=== PATIENT | female | born 1940 | race Caucasian/White ===

== ENCOUNTER → 2016-09-01 | Outpatient (CLI) | payer MEDICARE ==
[~2016-09-01] MED LIST: ASPIRIN E.C.81 M1 PO; Aspirin E.C. PO; B COMPLETE1 EACH PO; CARDURA2 M1 PO; CIPROFLOXACIN500 M1 PO; CLOPIDOGREL75 MG PO; COMBIGAN O20 DROP/5 BOTH EYES; CYCLOBENZAPRINE5 MG PO; Cardura PO; Colace PO; DAILY VITAMIN1 EAC8 PO; DOCUSATE SODIU100 MG PO; DORZOLAMIDE HCL10 ML LEFT EYE; DOXAZOSIN MESYLA2 MG PO; Dulcolax PO; ENDOCET 5-3251 EACH PO; FOSINOPRIL SODI20 MG PO; IMDUR60 MG PO; ISORDIL,SORBITR20 MG PO; ISOSORBIDE MONO60 MG PO; Imdur PO; KEFLEX500 MG PO; KEPPRA500 MG PO; Keppra PO; LAMICTAL ODT100 MG PO; LAMOTRIGINE100 MG PO; LEVETIRACETAM500 MG PO; LEVOFLOXACIN250 MG PO; LOPRESSOR100 M1 PO; LOVENOX40 MG/0.4 SC; LOW DOSE ASPIRI81 M1 PO; LaMICtal PO; Lopressor PO; MEDROL DOSEPAK4 MG PO; MONOPRIL HCT1 TABLE1 PO; MONOPRIL20 MG PO; NEURONTIN100 MG PO; NIFEDICAL XL60 MG PO; NIFEDIPINE ER30 MG PO; OS-CAL 500+D T1 EAC1 PO; Oscal 500 w/Vitamin PO; PANTOPRAZOLE SO40 MG PO; PLAVIX75 MG PO; PROCARDIA XL60 MG PO; Plavix PO; Procardia XL,Adalat PO; SENNA-TIME S T1 EACH PO; SIMVASTATIN40 M1 PO; SIMVASTATIN40 MG PO; SPIRONOLACT/HC1 EACH PO; Senokot S,Pericolace PO; TOPROL XL100 MG PO; TYLENOL PM1 CAPLET PO; TYLENOL REGULA325 MG PO; Theragran PO; VITAMIN B-12250 MCG PO; VITAMIN B-6250 MG PO; Vigamox 0.5% Ophth S LEFT EYE; ZESTRIL,PRINIVI40 MG PO; ZOCOR40 MG PO
== END | disposition home or self-care (01) ==
LOC: CDC 11:43
DX: R94.31 Abnormal electrocardiogram [ECG] [EKG] (principal)
CPT/HCPCS: 93000

== ENCOUNTER 2016-09-04 13:54 | Inpatient (IN) | payer OTHER, MEDICARE ==
[~2016-09-04] VITALS: Ht 165.1 cm; Wt 62.9 kg
[2016-09-04 14:11] LABS: HEMATOCRIT 25.6 % (36.0-46.0); MCH 31.5 PG (29.0-34.0); MCHC 31.6 G/DL (30.0-36.0); MCV 99.6 FL (83-99); MEAN PLAT.VOLUME 9.3 uM^3 (9.5-12.4); PLATELET COUNT 196 K/uL (156-360); RBC DIS.WIDTH-CV 14.6 % (11.8-14.6); RBC DIS.WIDTH-SD 52.9 % (39-53); RED BLOOD COUNT 2.57 M/uL (3.80-5.20); WHITE BLOOD COUNT 5.1 K/uL (4.1-10.2)
[2016-09-04 14:20] LABS: CHLORIDE 110 mEq/L (99-109); POTASSIUM 3.6 mEq/L (3.7-5.4); SODIUM 141 mEq/L (136-147)
[2016-09-04 14:21] LABS: GLUCOSE 236 mg/dL (70-99)
[2016-09-04 14:23] LABS: ANION GAP 6 MEQ/L (2-14)
[2016-09-04 14:25] LABS: GFR ESTIMATE (CALCULATED) 39 mL/min/
[2016-09-04 14:26] LABS: UREA NITROGEN (BUN) 27 mg/dL (9-23)
[2016-09-04 14:36] VITALS: BP 112/52
[2016-09-04 14:43] VITALS: BP 109/49
[2016-09-04 14:45] VITALS: BP 109/49
[2016-09-04 16:56] LABS: MCH 31.6 PG (29.0-34.0); MCHC 33.5 G/DL (30.0-36.0); RBC DIS.WIDTH-CV 15.6 % (11.8-14.6); RBC DIS.WIDTH-SD 53.1 % (39-53); WHITE BLOOD COUNT 5.7 K/uL (4.1-10.2)
[2016-09-04 17:14] LABS: TROP-I INTERPRETATION NEGATIVE; TROPONIN-I < 0.01 ng/mL (0.0-0.30)
[2016-09-04 17:16] LABS: ANION GAP 7 MEQ/L (2-14); CHLORIDE 112 MEQ/L (99-109); GFR ESTIMATE (CALCULATED) 52 mL/min/; POTASSIUM 3.6 MEQ/L (3.7-5.4); SAMPLE HEMOLYSIS CHECK 0; SAMPLE ICTERIC CHECK 0; SAMPLE LIPEMIA CHECK 0; SODIUM 141 MEQ/L (136-147); UREA NITROGEN (BUN) 22 mg/dL (9-23)
[2016-09-04 17:22] LABS: GLUCOSE 120 mg/dL (70-99)
[2016-09-04 17:26] LABS: MEAN PLAT.VOLUME 9.1 uM^3 (9.5-12.4); PLAT.SUFFICIENCY DECREASED
[2016-09-04 17:49] LABS: MCV 94.1 FL (83-99); PLATELET COUNT 130 K/uL (156-360); RED BLOOD COUNT 3.93 M/uL (3.80-5.20)
[2016-09-04 19:40] VITALS: BP 99/39
[2016-09-04 22:00] VITALS: BP 109/39
[2016-09-04 22:19] LABS: METH RESISTANT S AUREUS PCR NEGATIVE (NEGATIVE)
[2016-09-04 22:32] LABS: PROBE CHECK PASS; SPECIMEN PROCESSING CONTROL PASS
[2016-09-05] VITALS (8 sets, daily range): BP systolic 99–143; BP diastolic 39–64
[2016-09-05 07:06] LABS: TROP-I INTERPRETATION NEGATIVE; TROPONIN-I < 0.01 ng/mL (0.0-0.30)
[2016-09-05 08:52] LABS: HEMATOCRIT 34.5 % (36.0-46.0); MCH 31.7 PG (29.0-34.0); MCHC 34.2 G/DL (30.0-36.0); MCV 92.7 FL (83-99); MEAN PLAT.VOLUME 9.4 uM^3 (9.5-12.4); PLATELET COUNT 136 K/uL (156-360); RBC DIS.WIDTH-CV 16.3 % (11.8-14.6); RBC DIS.WIDTH-SD 54.4 % (39-53); RED BLOOD COUNT 3.72 M/uL (3.80-5.20)
[2016-09-05 11:55] LABS: ANION GAP 9 MEQ/L (2-14); CHLORIDE 110 MEQ/L (99-109); SAMPLE HEMOLYSIS CHECK 0; SAMPLE ICTERIC CHECK 0; SAMPLE LIPEMIA CHECK 0; SODIUM 139 MEQ/L (136-147)
[2016-09-05 11:58] LABS: POTASSIUM 4.5 MEQ/L (3.7-5.4)
[2016-09-05 12:00] LABS: GFR ESTIMATE (CALCULATED) 52 mL/min/; UREA NITROGEN (BUN) 18 mg/dL (9-23)
[2016-09-05 12:03] LABS: GLUCOSE 80 mg/dL (70-99)
[2016-09-05] MEDS ORDERED: NEURONTIN300 MG PO (15:06)
[2016-09-05] MEDS ORDERED: CILOSTAZOL100 MG PO (15:06)
[2016-09-05] MEDS ORDERED: BENAZEPRIL-HCT1 EAC5 PO (15:07)
[2016-09-06] VITALS (7 sets, daily range): BP systolic 84–146; BP diastolic 39–50
[2016-09-06 07:11] LABS: BASOPHIL COUNT 0.1 K/uL (0-0.1); EOSINOPHIL (%) 0.1 % (0-5); HEMATOCRIT 35.4 % (36.0-46.0); IMMATURE GRANULOCYTE (%) 0.4 % (0.0-0.7); INSTRUMENT ABS NEUTROPHIL CT 5.8 K/uL; LYMPHOCYTE COUNT 1.3 K/uL (1.0-2.8); MCH 31.8 PG (29.0-34.0); MCHC 33.6 G/DL (30.0-36.0); MCV 94.7 FL (83-99); MEAN PLAT.VOLUME 9.8 uM^3 (9.5-12.4); MONOCYTE (%) 11.1 % (3-12); MONOCYTE COUNT 0.9 K/uL (0-0.8); NEUTROPHIL COUNT 5.8 K/uL (1.8-6.4); PLATELET COUNT 137 K/uL (156-360); RBC DIS.WIDTH-CV 16.1 % (11.8-14.6); RBC DIS.WIDTH-SD 55.6 % (39-53); RED BLOOD COUNT 3.74 M/uL (3.80-5.20)
[2016-09-07] VITALS (10 sets, daily range): BP systolic 96–145; BP diastolic 35–90
[2016-09-07 06:55] LABS: EOSINOPHIL (%) 0 % (0-5); HEMATOCRIT 31.5 % (36.0-46.0); IMMATURE GRANULOCYTE (%) 0.2 % (0.0-0.7); INSTRUMENT ABS NEUTROPHIL CT 4.2 K/uL; LYMPHOCYTE COUNT 1.5 K/uL (1.0-2.8); MCH 31.6 PG (29.0-34.0); MCHC 33.7 G/DL (30.0-36.0); MEAN PLAT.VOLUME 9.7 uM^3 (9.5-12.4); MONOCYTE (%) 12.7 % (3-12); MONOCYTE COUNT 0.8 K/uL (0-0.8); NEUTROPHIL (%) 64.1 % (45-76); NEUTROPHIL COUNT 4.2 K/uL (1.8-6.4); PLATELET COUNT 130 K/uL (156-360); RBC DIS.WIDTH-CV 15.2 % (11.8-14.6); RBC DIS.WIDTH-SD 52.5 % (39-53); RED BLOOD COUNT 3.35 M/uL (3.80-5.20); WHITE BLOOD COUNT 6.5 K/uL (4.1-10.2)
[2016-09-07 21:03] LABS: HEMATOCRIT 31.6 % (36.0-46.0); MCH 30.7 PG (29.0-34.0); MCHC 32.6 G/DL (30.0-36.0); MCV 94.3 FL (83-99); MEAN PLAT.VOLUME 9.6 uM^3 (9.5-12.4); PLATELET COUNT 122 K/uL (156-360); RBC DIS.WIDTH-SD 51.8 % (39-53); RED BLOOD COUNT 3.35 M/uL (3.80-5.20); WHITE BLOOD COUNT 7.8 K/uL (4.1-10.2)
[2016-09-07 21:10] LABS: CHLORIDE 104 mEq/L (99-109); POTASSIUM 3.7 mEq/L (3.7-5.4); SODIUM 139 mEq/L (136-147)
[2016-09-07 21:12] LABS: GLUCOSE 93 mg/dL (70-99)
[2016-09-07 21:13] LABS: ANION GAP 9 MEQ/L (2-14)
[2016-09-07 21:15] LABS: GFR ESTIMATE (CALCULATED) > 59 mL/min/
[2016-09-07 21:16] LABS: UREA NITROGEN (BUN) 15 mg/dL (9-23)
[2016-09-07 21:23] LABS: TROP-I INTERPRETATION NEGATIVE; TROPONIN-I < 0.01 ng/mL (0.0-0.30)
[2016-09-08] VITALS (11 sets, daily range): BP systolic 96–127; BP diastolic 36–61
[2016-09-08 05:27] LABS: CHLORIDE 104 mEq/L (99-109); POTASSIUM 4.2 mEq/L (3.7-5.4); SODIUM 138 mEq/L (136-147)
[2016-09-08 05:28] LABS: GLUCOSE 105 mg/dL (70-99)
[2016-09-08 05:30] LABS: ANION GAP 9 MEQ/L (2-14)
[2016-09-08 05:32] LABS: GFR ESTIMATE (CALCULATED) > 59 mL/min/
[2016-09-08 05:33] LABS: UREA NITROGEN (BUN) 17 mg/dL (9-23)
[2016-09-08 05:41] LABS: TROP-I INTERPRETATION NEGATIVE; TROPONIN-I 0.02 ng/mL (0.0-0.30)
[2016-09-08 06:03] LABS: HEMATOCRIT 30.4 % (36.0-46.0); MCH 31.3 PG (29.0-34.0); MCHC 32.9 G/DL (30.0-36.0); MEAN PLAT.VOLUME 9.9 uM^3 (9.5-12.4); PLATELET COUNT 133 K/uL (156-360); RBC DIS.WIDTH-CV 14.6 % (11.8-14.6); RBC DIS.WIDTH-SD 50.9 % (39-53); WHITE BLOOD COUNT 5.8 K/uL (4.1-10.2)
[2016-09-09 00:46] VITALS: BP 103/53
[2016-09-09 04:09] VITALS: BP 126/57
[2016-09-09 07:51] VITALS: BP 124/59
[2016-09-09 12:37] VITALS: BP 124/59
[2016-09-09 16:08] LABS: HEMATOCRIT 31.9 % (36.0-46.0); MCHC 33.2 G/DL (30.0-36.0); MCV 96.4 FL (83-99); MEAN PLAT.VOLUME 9.8 uM^3 (9.5-12.4); PLATELET COUNT 165 K/uL (156-360); RBC DIS.WIDTH-CV 15.1 % (11.8-14.6); RBC DIS.WIDTH-SD 53.1 % (39-53); RED BLOOD COUNT 3.31 M/uL (3.80-5.20); WHITE BLOOD COUNT 7.3 K/uL (4.1-10.2)
[2016-09-09 19:20] VITALS: BP 136/60
[2016-09-10 00:20] VITALS: BP 122/60
[2016-09-10 05:00] VITALS: BP 115/55
[2016-09-10 07:34] VITALS: BP 120/56
[2016-09-10 13:04] VITALS: BP 101/50
[2016-09-10 15:24] VITALS: BP 115/56
[2016-09-10 20:00] VITALS: BP 144/56
[2016-09-11] VITALS (7 sets, daily range): BP systolic 97–125; BP diastolic 52–59
[2016-09-11 06:17] LABS: TROP-I INTERPRETATION NEGATIVE; TROPONIN-I < 0.01 ng/mL (0.0-0.30)
[2016-09-11 06:54] LABS: ANION GAP 7 MEQ/L (2-14); CHLORIDE 100 MEQ/L (99-109); GFR ESTIMATE (CALCULATED) 47 mL/min/; GLUCOSE 87 mg/dL (70-99); POTASSIUM 3.6 MEQ/L (3.7-5.4); SAMPLE HEMOLYSIS CHECK 0; SAMPLE ICTERIC CHECK 0; SAMPLE LIPEMIA CHECK 0; SODIUM 141 MEQ/L (136-147); UREA NITROGEN (BUN) 21 mg/dL (9-23)
[2016-09-11] MEDS ORDERED: HYDROCODON-ACE1 EAC7 PO (17:01)
[2016-09-12 03:46] VITALS: BP 127/58
[2016-09-12 08:45] VITALS: BP 109/55
[2016-09-12 12:20] VITALS: BP 94/48
[2016-09-12] MEDS ORDERED: FURO20I IV (12:32)
[2016-09-12] MEDS ORDERED: LEVAQUIN750 MG PO (12:38)
== END 2016-09-12 15:01 | DRG 907 ==
LOC: EME → EDBD 13:54 → EME 16:02 → SDC 16:02 → 2SOUTH 16:25 → 4WEST 16:25 → 2SOUTH 16:25 → 4WEST 19:46 → 4EAST 09-08 07:23
PROVIDERS: Emergency Medicine; Internal Medicine Cardiovascular Disease; Physician Assistant Surgical; Surgery
DX: I97.42 Intraoperative hemorrhage and hematoma of a circulatory system organ or structure complicating other procedure (principal); I77.72 Dissection of iliac artery; D62 Acute posthemorrhagic anemia; J95.89 Other postprocedural complications and disorders of respiratory system, not elsewhere classified; R09.02 Hypoxemia; I11.0 Hypertensive heart disease with heart failure; I50.9 Heart failure, unspecified; I70.222 Atherosclerosis of native arteries of extremities with rest pain, left leg; I74.5 Embolism and thrombosis of iliac artery; I27.2 Other secondary pulmonary hypertension; I35.0 Nonrheumatic aortic (valve) stenosis; I70.1 Atherosclerosis of renal artery; I77.1 Stricture of artery; E78.5 Hyperlipidemia, unspecified; R94.31 Abnormal electrocardiogram [ECG] [EKG]; Z66 Do not resuscitate; Z51.5 Encounter for palliative care; Y92.531 Health care provider office as the place of occurrence of the external cause; Y84.2 Radiological procedure and radiotherapy as the cause of abnormal reaction of the patient, or of later complication, without mention of misadventure at the time of the procedure; I69.354 Hemiplegia and hemiparesis following cerebral infarction affecting left non-dominant side
CPT/HCPCS: 71020; 71275; 74174; 80048; 80048 91; 80053; 80061; 80069; 82570; 82607 GA; 82728 GA; 83605; 83880; 84145 90; 84156; 84443; 84484; 85025; 85025 91; 85027; 85610; 85730; 86900; 86901; 86920; 87641; 93000; 93005; 93306; 94799; 97530 GO; 97530 GP; 99281; 99285; C1757; C1768; J0690; J1170; J1644; J1650; J1940; J2270; J2405; J2543; J2720; J2765; J3010; J7030; J7050; J7120; P9016

== ENCOUNTER 2017-08-23 16:21 | Emergency (ER) | payer OTHER, MEDICARE ==
[~2017-08-23] VITALS: Ht 167.6 cm; Wt 64.0 kg
[~2017-08-23 16:21] MED LIST changes: +BENAZEPRIL-HCT1 EAC5 PO; +CILOSTAZOL100 MG PO; +FURO20I IV; +HYDROCODON-ACE1 EAC7 PO; +LEVAQUIN750 MG PO; +NEURONTIN300 MG PO
[2017-08-23 17:28] LABS: HEMATOCRIT 26.5 % (36.0-46.0); HEMOGLOBIN 8.7 G/DL (11.9-15.5); MCHC 32.8 G/DL (30.0-36.0); MCV 97.4 FL (83-99); PLATELET COUNT 224 K/uL (156-360); RBC DIS.WIDTH-CV 16.4 % (11.8-14.6); RBC DIS.WIDTH-SD 57.9 % (39-53); RED BLOOD COUNT 2.72 M/uL (3.80-5.20); WHITE BLOOD COUNT 7.6 K/uL (4.1-10.2)
[2017-08-23 17:37] LABS: CHLORIDE 103 mEq/L (99-109); POTASSIUM 4.1 mEq/L (3.7-5.4); SODIUM 137 mEq/L (136-147)
[2017-08-23 17:39] LABS: GLUCOSE 93 mg/dL (70-99)
[2017-08-23 17:43] LABS: CREATININE 1.8 mg/dL (0.6-1.3); GFR ESTIMATE (CALCULATED) 29 mL/min/
[2017-08-23 17:44] LABS: UREA NITROGEN (BUN) 27 mg/dL (9-23)
[2017-08-23 18:53] LABS: APPEARANCE CLOUDY ((CLEAR)); BILIRUBIN NEGATIVE; BLOOD NEGATIVE; COLOR YELLOW ((YELLOW)); GLUCOSE (STRIP) NEGATIVE; KETONES NEGATIVE; LEUKOCYTES TRACE; NITRITE NEGATIVE; PROTEIN (STRIP) NEGATIVE; SPECIFIC GRAVITY 1.014 (1.000-1.030); UROBILINOGEN 0.2 MG/DL (0.2-1.0)
[2017-08-23 19:28] LABS: BACTERIA RARE /HPF; EPITHELIAL CELLS 1+ /HPF; MUCUS TRACE /LPF; RED BLOOD CELLS 0-5 /HPF (0-5); UCUL ADDED? YES
[2017-08-23] MEDS ORDERED: PROAIR HFA8.5 GM IH (20:14)
[2017-08-23 21:06] VITALS: BP 135/69
== END 2017-08-23 21:09 | disposition home or self-care (01) ==
LOC: EME 16:21
PROVIDERS: Physician Assistant
DX: I95.9 Hypotension, unspecified (principal); J44.9 Chronic obstructive pulmonary disease, unspecified; E78.5 Hyperlipidemia, unspecified; I12.9 Hypertensive chronic kidney disease with stage 1 through stage 4 chronic kidney disease, or unspecified chronic kidney disease; N18.9 Chronic kidney disease, unspecified; I25.2 Old myocardial infarction; Z86.73 Personal history of transient ischemic attack (TIA), and cerebral infarction without residual deficits; Z79.82 Long term (current) use of aspirin
CPT/HCPCS: 71046; 80048; 81003; 83605; 85027; 87086; 93005; 94640; 99281; 99285; J7030

== ENCOUNTER 2017-09-02 18:01 | Inpatient (IN) | payer OTHER, MEDICARE ==
[~2017-09-02] VITALS: Ht 165.1 cm; Wt 59.9 kg
[~2017-09-02 18:01] MED LIST changes: -BENAZEPRIL-HCT1 EAC5 PO; -DAILY VITAMIN1 EAC8 PO; +DAILY VITE1 EAC1 PO; +LOTENSIN HCT1 TABLE1 PO; -NIFEDICAL XL60 MG PO; +NIFEDIPINE ER60 MG PO; +PROAIR HFA8.5 GM IH
[2017-09-02 19:32] LABS: HEMATOCRIT 29.5 % (36.0-46.0); HEMOGLOBIN 9.8 G/DL (11.9-15.5); MCHC 33.2 G/DL (30.0-36.0); MCV 96.4 FL (83-99); PLATELET COUNT 213 K/uL (156-360); RBC DIS.WIDTH-CV 15.7 % (11.8-14.6); RBC DIS.WIDTH-SD 55.5 % (39-53); RED BLOOD COUNT 3.06 M/uL (3.80-5.20); WHITE BLOOD COUNT 7.2 K/uL (4.1-10.2)
[2017-09-02 19:38] LABS: INTER. NORMALIZED RATIO 1.2
[2017-09-02 19:40] LABS: CHLORIDE 104 mEq/L (99-109); POTASSIUM 4.1 mEq/L (3.7-5.4); SODIUM 138 mEq/L (136-147)
[2017-09-02 19:41] LABS: GLUCOSE 94 mg/dL (70-99); PTT 29.5 SEC (25-37)
[2017-09-02 19:45] LABS: CREATININE 1.4 mg/dL (0.6-1.3); GFR ESTIMATE (CALCULATED) 39 mL/min/
[2017-09-02 19:46] LABS: UREA NITROGEN (BUN) 29 mg/dL (9-23)
[2017-09-03] VITALS (7 sets, daily range): BP systolic 117–178; BP diastolic 56–75
[2017-09-03] MEDS ORDERED: STIOLTO RESPIMAT4 GM IH (00:01)
[2017-09-03] MEDS ORDERED: VITAMIN D31000 UNIT PO (00:01)
[2017-09-03] MEDS ORDERED: SYNTHROID25 MCG PO (00:01)
[2017-09-03] MEDS ORDERED: K-DUR10 MEQ PO (00:01)
[2017-09-03 06:07] LABS: HEMATOCRIT 27.7 % (36.0-46.0); MCH 31.7 PG (29.0-34.0); MCHC 32.5 G/DL (30.0-36.0); MCV 97.5 FL (83-99); PLATELET COUNT 198 K/uL (156-360); RBC DIS.WIDTH-CV 15.4 % (11.8-14.6); RBC DIS.WIDTH-SD 54.8 % (39-53); RED BLOOD COUNT 2.84 M/uL (3.80-5.20); WHITE BLOOD COUNT 5.7 K/uL (4.1-10.2)
[2017-09-03 06:29] LABS: CHLORIDE 105 MEQ/L (99-109); CREATININE 1.1 MG/DL (0.6-1.3); GFR ESTIMATE (CALCULATED) 51 mL/min/; GLUCOSE 79 mg/dL (70-99); POTASSIUM 3.7 MEQ/L (3.7-5.4); SODIUM 138 MEQ/L (136-147); UREA NITROGEN (BUN) 25 mg/dL (9-23)
[2017-09-03 09:41] LABS: IRON 17 MCG/DL (35-150); TRANSFERRIN SATUR. 11 % (20-55)
[2017-09-03 10:13] LABS: FOLIC ACID (FOLATE) > 22.0 NG/ML (5.0-22.0)
[2017-09-03 19:28] LABS: HEMATOCRIT 32.4 % (36.0-46.0); HEMOGLOBIN 10.4 G/DL (11.9-15.5); MCH 31.4 PG (29.0-34.0); MCHC 32.1 G/DL (30.0-36.0); MCV 97.9 FL (83-99); PLATELET COUNT 205 K/uL (156-360); RBC DIS.WIDTH-CV 15.1 % (11.8-14.6); RBC DIS.WIDTH-SD 54.4 % (39-53); RED BLOOD COUNT 3.31 M/uL (3.80-5.20); WHITE BLOOD COUNT 8.3 K/uL (4.1-10.2)
[2017-09-03 19:48] LABS: TROP-I INTERPRETATION NEGATIVE; TROPONIN-I 0.02 ng/mL (0.0-0.30)
[2017-09-03 19:51] LABS: CHLORIDE 105 MEQ/L (99-109); CREATININE 1.1 MG/DL (0.6-1.3); GFR ESTIMATE (CALCULATED) 51 mL/min/; GLUCOSE 91 mg/dL (70-99); POTASSIUM 4.3 MEQ/L (3.7-5.4); SODIUM 138 MEQ/L (136-147); UREA NITROGEN (BUN) 22 mg/dL (9-23)
[2017-09-04] VITALS (16 sets, daily range): BP systolic 81–140; BP diastolic 41–63
[2017-09-04 05:11] LABS: HEMATOCRIT 26.4 % (36.0-46.0); HEMOGLOBIN 8.4 G/DL (11.9-15.5); MCV 98.5 FL (83-99)
[2017-09-04 05:18] LABS: TROP-I INTERPRETATION NEGATIVE; TROPONIN-I < 0.01 ng/mL (0.0-0.30)
[2017-09-04 05:26] LABS: CHLORIDE 107 MEQ/L (99-109); CREATININE 1.3 MG/DL (0.6-1.3); GFR ESTIMATE (CALCULATED) 42 mL/min/; GLUCOSE 105 mg/dL (70-99); POTASSIUM 4.5 MEQ/L (3.7-5.4); SODIUM 138 MEQ/L (136-147); UREA NITROGEN (BUN) 28 mg/dL (9-23)
[2017-09-04 07:51] LABS: HEMATOCRIT 27.2 % (36.0-46.0); MCH 30.5 PG (29.0-34.0); MCHC 30.9 G/DL (30.0-36.0); MCV 98.9 FL (83-99); PLATELET COUNT 180 K/uL (156-360); RBC DIS.WIDTH-CV 15.4 % (11.8-14.6); RBC DIS.WIDTH-SD 55.4 % (39-53); RED BLOOD COUNT 2.75 M/uL (3.80-5.20); WHITE BLOOD COUNT 8.3 K/uL (4.1-10.2)
[2017-09-04 07:53] LABS: HEMOGLOBIN 8.4 G/DL (11.9-15.5)
[2017-09-04 14:37] LABS: HEMATOCRIT 29.1 % (36.0-46.0); HEMOGLOBIN 9.2 G/DL (11.9-15.5); MCV 96.4 FL (83-99)
[2017-09-05] VITALS (7 sets, daily range): BP systolic 107–162; BP diastolic 55–70
[2017-09-05 05:16] LABS: BASOPHIL (%) 0.5 % (0-1); EOSINOPHIL (%) 0 % (0-5); HEMOGLOBIN 9.3 G/DL (11.9-15.5); IMMATURE GRANULOCYTE (%) 0.2 % (0.0-0.7); LYMPHOCYTE (%) 20.9 % (15-42); LYMPHOCYTE COUNT 1.4 K/uL (1.0-2.8); MCH 30.7 PG (29.0-34.0); MCHC 32.1 G/DL (30.0-36.0); MCV 95.7 FL (83-99); MONOCYTE (%) 9.8 % (3-12); MONOCYTE COUNT 0.7 K/uL (0-0.8); NEUTROPHIL (%) 68.6 % (45-76); NEUTROPHIL COUNT 4.6 K/uL (1.8-6.4); PLATELET COUNT 163 K/uL (156-360); RBC DIS.WIDTH-CV 15.5 % (11.8-14.6); RBC DIS.WIDTH-SD 54.8 % (39-53); RED BLOOD COUNT 3.03 M/uL (3.80-5.20); WHITE BLOOD COUNT 6.7 K/uL (4.1-10.2)
[2017-09-06 03:59] VITALS: BP 108/51
[2017-09-06 06:00] LABS: BASOPHIL (%) 0.6 % (0-1); EOSINOPHIL (%) 0 % (0-5); HEMATOCRIT 29.5 % (36.0-46.0); HEMOGLOBIN 9.4 G/DL (11.9-15.5); IMMATURE GRANULOCYTE (%) 0.2 % (0.0-0.7); LYMPHOCYTE (%) 25.3 % (15-42); LYMPHOCYTE COUNT 1.3 K/uL (1.0-2.8); MCH 30.2 PG (29.0-34.0); MCHC 31.9 G/DL (30.0-36.0); MCV 94.9 FL (83-99); MONOCYTE (%) 10.9 % (3-12); MONOCYTE COUNT 0.5 K/uL (0-0.8); NEUTROPHIL COUNT 3.1 K/uL (1.8-6.4); PLATELET COUNT 178 K/uL (156-360); RBC DIS.WIDTH-CV 14.9 % (11.8-14.6); RBC DIS.WIDTH-SD 52.4 % (39-53); RED BLOOD COUNT 3.11 M/uL (3.80-5.20)
[2017-09-06 06:34] LABS: CHLORIDE 106 MEQ/L (99-109); GLUCOSE 87 mg/dL (70-99); MAGNESIUM 1.6 mg/dl (1.3-2.7); SODIUM 137 MEQ/L (136-147); UREA NITROGEN (BUN) 16 mg/dL (9-23)
[2017-09-06 06:38] LABS: CREATININE 0.8 MG/DL (0.6-1.3); GFR ESTIMATE (CALCULATED) > 59 mL/min/
[2017-09-06 08:26] VITALS: BP 109/53
[2017-09-06 11:56] VITALS: BP 90/50
[2017-09-06] MEDS ORDERED: LOVENOX40 MG/0.4 SC (14:33)
[2017-09-06] MEDS ORDERED: FERROUS SULFAT325 MG PO (14:33)
[2017-09-06 16:45] VITALS: BP 119/56
== END 2017-09-06 18:17 | DRG 253 ==
LOC: EME 18:01 → 4EAST 09-03 01:13 → EDOF 09-03 01:13 → 2EAST 09-03 01:13 → ENRESERV 09-03 01:16 → 2EAST 09-03 02:16 → ENRESERV 09-03 19:33 → 4EAST 09-03 21:20 → ENPENDDIS 09-06 18:00 → 4EAST 09-06 18:17
PROVIDERS: Hospitalist; Internal Medicine; Physician Assistant; Surgery
PROC: 04CL0ZZ Extirpation of Matter from Left Femoral Artery, Open Approach (ICD-10-PCS; principal; 2017-09-03)
PROC: 30233N1 Transfusion of Nonautologous Red Blood Cells into Peripheral Vein, Percutaneous Approach (ICD-10-PCS; principal; 2017-09-03)
PROC: 04QL0ZZ Repair Left Femoral Artery, Open Approach (ICD-10-PCS; principal; 2017-09-03)
DX: I72.4 Aneurysm of artery of lower extremity (principal); D62 Acute posthemorrhagic anemia; I95.89 Other hypotension; G40.909 Epilepsy, unspecified, not intractable, without status epilepticus; J44.9 Chronic obstructive pulmonary disease, unspecified; I12.9 Hypertensive chronic kidney disease with stage 1 through stage 4 chronic kidney disease, or unspecified chronic kidney disease; N18.3 Chronic kidney disease, stage 3 (moderate); E78.5 Hyperlipidemia, unspecified; I35.0 Nonrheumatic aortic (valve) stenosis; I69.354 Hemiplegia and hemiparesis following cerebral infarction affecting left non-dominant side; H40.9 Unspecified glaucoma; I25.2 Old myocardial infarction; Z79.02 Long term (current) use of antithrombotics/antiplatelets; Z79.82 Long term (current) use of aspirin; Z99.3 Dependence on wheelchair
CPT/HCPCS: 71045; 72170; 73552; 80048; 80048 91; 82607; 82746; 83540; 83735; 84466; 84484; 85014; 85018; 85025; 85027; 85610; 85730; 86850; 86900; 86901; 86920; 93005; 93926; 93971; 94640; 94640 76; 94799; 97530 GP; 99281; 99285; C1757; J0330; J0690; J1100; J1644; J1650; J2405; J2720; J2765; J3010; J7030; P9016; S0020

== ENCOUNTER 2017-09-14 10:42 | Inpatient (IN) | payer OTHER, MEDICARE ==
[~2017-09-14] VITALS: Ht 162.6 cm; Wt 64.5 kg
[~2017-09-14 10:42] MED LIST changes: +FERROUS SULFAT325 MG PO; +K-DUR10 MEQ PO; +STIOLTO RESPIMAT4 GM IH; +SYNTHROID25 MCG PO; +VITAMIN D31000 UNIT PO
[2017-09-14 11:20] LABS: BASOPHIL (%) 0.7 % (0-1); EOSINOPHIL (%) 0 % (0-5); HEMATOCRIT 33.7 % (36.0-46.0); HEMOGLOBIN 10.9 G/DL (11.9-15.5); IMMATURE GRANULOCYTE (%) 0.3 % (0.0-0.7); LYMPHOCYTE (%) 27.9 % (15-42); LYMPHOCYTE COUNT 1.7 K/uL (1.0-2.8); MCH 30.9 PG (29.0-34.0); MCHC 32.3 G/DL (30.0-36.0); MCV 95.5 FL (83-99); MONOCYTE (%) 7.5 % (3-12); MONOCYTE COUNT 0.5 K/uL (0-0.8); NEUTROPHIL (%) 63.6 % (45-76); NEUTROPHIL COUNT 3.8 K/uL (1.8-6.4); RBC DIS.WIDTH-CV 14.9 % (11.8-14.6); RBC DIS.WIDTH-SD 50.8 % (39-53); RED BLOOD COUNT 3.53 M/uL (3.80-5.20)
[2017-09-14 11:25] LABS: PLATELET COUNT 349 K/uL (156-360)
[2017-09-14 11:28] LABS: INTER. NORMALIZED RATIO 1.1
[2017-09-14 11:29] LABS: CHLORIDE 105 mEq/L (99-109); POTASSIUM 4.2 mEq/L (3.7-5.4); SODIUM 142 mEq/L (136-147)
[2017-09-14 11:30] LABS: GLUCOSE 134 mg/dL (70-99)
[2017-09-14 11:31] LABS: PTT 32.5 SEC (25-37)
[2017-09-14 11:34] LABS: CREATININE 0.9 mg/dL (0.6-1.3); GFR ESTIMATE (CALCULATED) > 59 mL/min/
[2017-09-14 11:35] LABS: UREA NITROGEN (BUN) 14 mg/dL (9-23)
[2017-09-14] MEDS ORDERED: EAR WAX DROPS15 ML RIGHT EAR (14:43)
[2017-09-14] MEDS ORDERED: TYLENOL EXTRA500 MG PO (14:45)
[2017-09-14 19:59] LABS: CHLORIDE 105 MEQ/L (99-109); CREATININE 0.8 MG/DL (0.6-1.3); GFR ESTIMATE (CALCULATED) > 59 mL/min/; GLUCOSE 124 mg/dL (70-99); POTASSIUM 4.5 MEQ/L (3.7-5.4); SODIUM 140 MEQ/L (136-147); UREA NITROGEN (BUN) 15 mg/dL (9-23)
[2017-09-14 20:00] LABS: HEMATOCRIT 30.6 % (36.0-46.0); HEMOGLOBIN 9.7 G/DL (11.9-15.5); MCHC 31.7 G/DL (30.0-36.0); MCV 97.8 FL (83-99); PLATELET COUNT 337 K/uL (156-360); RBC DIS.WIDTH-CV 15.2 % (11.8-14.6); RBC DIS.WIDTH-SD 53.6 % (39-53); RED BLOOD COUNT 3.13 M/uL (3.80-5.20); TROP-I INTERPRETATION NEGATIVE; TROPONIN-I 0.02 ng/mL (0.0-0.30); WHITE BLOOD COUNT 16.3 K/uL (4.1-10.2)
[2017-09-14 20:50] VITALS: BP 170/72
[2017-09-14 23:31] VITALS: BP 152/66
[2017-09-15 03:00] VITALS: BP 119/76
[2017-09-15 06:34] LABS: HEMATOCRIT 25.2 % (36.0-46.0); HEMOGLOBIN 7.8 G/DL (11.9-15.5); MCH 30.5 PG (29.0-34.0); MCV 98.4 FL (83-99); PLATELET COUNT 319 K/uL (156-360); RBC DIS.WIDTH-CV 15.1 % (11.8-14.6); RBC DIS.WIDTH-SD 53.3 % (39-53); RED BLOOD COUNT 2.56 M/uL (3.80-5.20); WHITE BLOOD COUNT 8.8 K/uL (4.1-10.2)
[2017-09-15 06:58] LABS: TROP-I INTERPRETATION NEGATIVE; TROPONIN-I < 0.01 ng/mL (0.0-0.30)
[2017-09-15 07:00] LABS: CHLORIDE 105 MEQ/L (99-109); CREATININE 0.9 MG/DL (0.6-1.3); GFR ESTIMATE (CALCULATED) > 59 mL/min/; GLUCOSE 105 mg/dL (70-99); POTASSIUM 4.9 MEQ/L (3.7-5.4); SODIUM 140 MEQ/L (136-147); UREA NITROGEN (BUN) 19 mg/dL (9-23)
[2017-09-15 07:28] VITALS: BP 108/54
[2017-09-15 12:44] VITALS: BP 104/50
[2017-09-15 16:58] VITALS: BP 108/60
[2017-09-15 21:00] VITALS: BP 161/79
[2017-09-16] VITALS (12 sets, daily range): BP systolic 104–155; BP diastolic 51–74
[2017-09-16 05:15] LABS: HEMATOCRIT 20.3 % (36.0-46.0); HEMOGLOBIN 6.2 G/DL (11.9-15.5); MCH 30.1 PG (29.0-34.0); MCHC 30.5 G/DL (30.0-36.0); MCV 98.5 FL (83-99); PLATELET COUNT 278 K/uL (156-360); RBC DIS.WIDTH-CV 15.4 % (11.8-14.6); RED BLOOD COUNT 2.06 M/uL (3.80-5.20); WHITE BLOOD COUNT 8.2 K/uL (4.1-10.2)
[2017-09-17 04:00] VITALS: BP 119/54
[2017-09-17 07:15] VITALS: BP 125/58
[2017-09-17 08:37] LABS: BASOPHIL (%) 0.5 % (0-1); EOSINOPHIL (%) 0 % (0-5); HEMATOCRIT 25.6 % (36.0-46.0); IMMATURE GRANULOCYTE (%) 0.4 % (0.0-0.7); LYMPHOCYTE (%) 20.8 % (15-42); LYMPHOCYTE COUNT 1.7 K/uL (1.0-2.8); MCHC 32.4 G/DL (30.0-36.0); MCV 95.5 FL (83-99); MONOCYTE (%) 7.4 % (3-12); MONOCYTE COUNT 0.6 K/uL (0-0.8); NEUTROPHIL (%) 70.9 % (45-76); NEUTROPHIL COUNT 5.9 K/uL (1.8-6.4); PLATELET COUNT 268 K/uL (156-360); RBC DIS.WIDTH-CV 15.1 % (11.8-14.6); RBC DIS.WIDTH-SD 51.8 % (39-53); WHITE BLOOD COUNT 8.3 K/uL (4.1-10.2)
[2017-09-17 08:39] LABS: HEMOGLOBIN 8.3 G/DL (11.9-15.5); RED BLOOD COUNT 2.68 M/uL (3.80-5.20)
[2017-09-17] MEDS ORDERED: ENDOCET 5-3251 EACH PO (10:24)
[2017-09-17 10:49] LABS: APPEARANCE CLEAR ((CLEAR)); BILIRUBIN NEGATIVE; BLOOD NEGATIVE; COLOR YELLOW ((YELLOW)); GLUCOSE (STRIP) NEGATIVE; KETONES NEGATIVE; LEUKOCYTES NEGATIVE; NITRITE NEGATIVE; PROTEIN (STRIP) NEGATIVE; UROBILINOGEN 0.2 MG/DL (0.2-1.0)
[2017-09-17 12:38] VITALS: BP 112/52
[2017-09-17 15:43] VITALS: BP 127/60
[2017-09-17 19:00] VITALS: BP 161/67
[2017-09-17 22:30] VITALS: BP 121/56
[2017-09-18 03:20] VITALS: BP 108/53
[2017-09-18 05:56] LABS: HEMATOCRIT 26.8 % (36.0-46.0); HEMOGLOBIN 8.5 G/DL (11.9-15.5); MCH 30.5 PG (29.0-34.0); MCHC 31.7 G/DL (30.0-36.0); MCV 96.1 FL (83-99); PLATELET COUNT 244 K/uL (156-360); RBC DIS.WIDTH-CV 14.7 % (11.8-14.6); RBC DIS.WIDTH-SD 51.2 % (39-53); RED BLOOD COUNT 2.79 M/uL (3.80-5.20); WHITE BLOOD COUNT 8.5 K/uL (4.1-10.2)
[2017-09-18 06:20] LABS: CHLORIDE 102 MEQ/L (99-109); CREATININE 0.8 MG/DL (0.6-1.3); GFR ESTIMATE (CALCULATED) > 59 mL/min/; GLUCOSE 92 mg/dL (70-99); SODIUM 136 MEQ/L (136-147); UREA NITROGEN (BUN) 13 mg/dL (9-23)
[2017-09-18 08:04] VITALS: BP 115/51
[2017-09-18 12:13] VITALS: BP 109/53
[2017-09-18 20:00] VITALS: BP 117/58
[2017-09-19] VITALS (8 sets, daily range): BP systolic 99–134; BP diastolic 49–77
[2017-09-20 04:00] VITALS: BP 123/58
[2017-09-20 08:16] VITALS: BP 104/55
[2017-09-20 09:58] LABS: HEMATOCRIT 23.7 % (36.0-46.0); HEMOGLOBIN 7.8 G/DL (11.9-15.5); MCH 31.3 PG (29.0-34.0); MCHC 32.9 G/DL (30.0-36.0); MCV 95.2 FL (83-99); PLATELET COUNT 225 K/uL (156-360); RBC DIS.WIDTH-CV 14.7 % (11.8-14.6); RBC DIS.WIDTH-SD 50.7 % (39-53); RED BLOOD COUNT 2.49 M/uL (3.80-5.20); WHITE BLOOD COUNT 5.9 K/uL (4.1-10.2)
[2017-09-20 10:09] LABS: CHLORIDE 102 MEQ/L (99-109); CREATININE 0.8 MG/DL (0.6-1.3); GFR ESTIMATE (CALCULATED) > 59 mL/min/; GLUCOSE 108 mg/dL (70-99); POTASSIUM 4.2 MEQ/L (3.7-5.4); SODIUM 135 MEQ/L (136-147); UREA NITROGEN (BUN) 11 mg/dL (9-23)
[2017-09-20 12:13] VITALS: BP 126/60
[2017-09-20 16:03] VITALS: BP 105/50
[2017-09-20 19:56] VITALS: BP 128/60
[2017-09-20 23:39] VITALS: BP 140/63
[2017-09-21] VITALS (7 sets, daily range): BP systolic 113–132; BP diastolic 55–63
[2017-09-22 04:10] VITALS: BP 109/54
[2017-09-22 07:57] VITALS: BP 131/61
[2017-09-22 10:17] LABS: HEMATOCRIT 24.5 % (36.0-46.0); HEMOGLOBIN 7.9 G/DL (11.9-15.5); MCH 31.1 PG (29.0-34.0); MCHC 32.2 G/DL (30.0-36.0); MCV 96.5 FL (83-99); PLATELET COUNT 255 K/uL (156-360); RBC DIS.WIDTH-CV 14.9 % (11.8-14.6); RBC DIS.WIDTH-SD 51.6 % (39-53); RED BLOOD COUNT 2.54 M/uL (3.80-5.20); WHITE BLOOD COUNT 5.4 K/uL (4.1-10.2)
[2017-09-22 10:45] LABS: CHLORIDE 105 MEQ/L (99-109); POTASSIUM 3.8 MEQ/L (3.7-5.4); SODIUM 139 MEQ/L (136-147)
[2017-09-22 10:50] LABS: CREATININE 0.7 MG/DL (0.6-1.3); GFR ESTIMATE (CALCULATED) > 59 mL/min/; GLUCOSE 98 mg/dL (70-99); UREA NITROGEN (BUN) 12 mg/dL (9-23)
[2017-09-22 11:45] VITALS: BP 108/53
[2017-09-22 16:00] VITALS: BP 133/60
[2017-09-22 20:43] VITALS: BP 145/64
[2017-09-22 23:49] VITALS: BP 138/65
[2017-09-23 04:05] VITALS: BP 123/59
[2017-09-23 08:27] VITALS: BP 123/59
[2017-09-23 11:28] VITALS: BP 135/63
[2017-09-23 11:45] LABS: BASOPHIL (%) 0.7 % (0-1); EOSINOPHIL (%) 0 % (0-5); HEMATOCRIT 27.6 % (36.0-46.0); HEMOGLOBIN 8.5 G/DL (11.9-15.5); IMMATURE GRANULOCYTE (%) 0.2 % (0.0-0.7); LYMPHOCYTE (%) 24.1 % (15-42); LYMPHOCYTE COUNT 1.5 K/uL (1.0-2.8); MCH 29.8 PG (29.0-34.0); MCHC 30.8 G/DL (30.0-36.0); MCV 96.8 FL (83-99); MONOCYTE (%) 9.6 % (3-12); MONOCYTE COUNT 0.6 K/uL (0-0.8); NEUTROPHIL (%) 65.4 % (45-76); PLATELET COUNT 280 K/uL (156-360); RBC DIS.WIDTH-CV 15.2 % (11.8-14.6); RBC DIS.WIDTH-SD 51.9 % (39-53); RED BLOOD COUNT 2.85 M/uL (3.80-5.20); WHITE BLOOD COUNT 6.1 K/uL (4.1-10.2)
[2017-09-23 15:56] VITALS: BP 125/58
[2017-09-23 20:21] VITALS: BP 135/64
[2017-09-24] VITALS (7 sets, daily range): BP systolic 105–150; BP diastolic 52–70
[2017-09-25 00:15] VITALS: BP 140/67
[2017-09-25 04:28] VITALS: BP 135/65
[2017-09-25 07:31] VITALS: BP 119/53
[2017-09-25 11:26] VITALS: BP 142/64
[2017-09-25 15:41] VITALS: BP 141/65
[2017-09-25 19:24] VITALS: BP 119/64
[2017-09-26] VITALS (7 sets, daily range): BP systolic 123–171; BP diastolic 62–100
[2017-09-27 04:40] VITALS: BP 147/67
[2017-09-27 08:17] VITALS: BP 155/70
[2017-09-27 10:04] LABS: HEMATOCRIT 30.8 % (36.0-46.0); HEMOGLOBIN 9.5 G/DL (11.9-15.5); MCHC 30.8 G/DL (30.0-36.0); MCV 97.2 FL (83-99); PLATELET COUNT 396 K/uL (156-360); RBC DIS.WIDTH-SD 55.1 % (39-53); RED BLOOD COUNT 3.17 M/uL (3.80-5.20)
[2017-09-27 10:24] LABS: CHLORIDE 107 MEQ/L (99-109); CREATININE 0.8 MG/DL (0.6-1.3); GFR ESTIMATE (CALCULATED) > 59 mL/min/; GLUCOSE 112 mg/dL (70-99); POTASSIUM 3.3 MEQ/L (3.7-5.4); SODIUM 143 MEQ/L (136-147); UREA NITROGEN (BUN) 17 mg/dL (9-23)
[2017-09-27 11:52] VITALS: BP 150/64
[2017-09-27 16:00] VITALS: BP 160/62
[2017-09-27 20:41] VITALS: BP 164/70
[2017-09-27 23:28] VITALS: BP 160/65
[2017-09-28 04:41] VITALS: BP 160/70
[2017-09-28 08:26] VITALS: BP 176/75
[2017-09-28] MEDS ORDERED: TRAMADOL HCL50 MG PO (11:10)
[2017-09-28] MEDS ORDERED: LEVAQUIN500 MG PO (11:12)
[2017-09-28] MEDS ORDERED: PREDNISONE10 MG PO (11:13)
[2017-09-28 12:14] VITALS: BP 166/74
== END 2017-09-28 15:31 | DRG 252 ==
LOC: EME 10:42 → SDC 16:40 → 4EAST 18:46 → 2SOUTH 18:46 → ENRESERV 18:50 → 4EAST 20:46 → ENRESERV 09-19 13:07 → 3EAST 09-19 16:05
PROVIDERS: Emergency Medicine; Physician Assistant Surgical; Surgery
DX: T82.392A Other mechanical complication of femoral arterial graft (bypass), initial encounter (principal); I97.618 Postprocedural hemorrhage of a circulatory system organ or structure following other circulatory system procedure; Y83.2 Surgical operation with anastomosis, bypass or graft as the cause of abnormal reaction of the patient, or of later complication, without mention of misadventure at the time of the procedure; D62 Acute posthemorrhagic anemia; J44.0 Chronic obstructive pulmonary disease with (acute) lower respiratory infection; J18.9 Pneumonia, unspecified organism; Y95 Nosocomial condition; J44.1 Chronic obstructive pulmonary disease with (acute) exacerbation; I89.8 Other specified noninfective disorders of lymphatic vessels and lymph nodes; G40.909 Epilepsy, unspecified, not intractable, without status epilepticus; I12.9 Hypertensive chronic kidney disease with stage 1 through stage 4 chronic kidney disease, or unspecified chronic kidney disease; N18.9 Chronic kidney disease, unspecified; E78.5 Hyperlipidemia, unspecified; I35.0 Nonrheumatic aortic (valve) stenosis; I73.9 Peripheral vascular disease, unspecified; I69.354 Hemiplegia and hemiparesis following cerebral infarction affecting left non-dominant side; I25.2 Old myocardial infarction; Z87.891 Personal history of nicotine dependence; Z79.82 Long term (current) use of aspirin; Z79.02 Long term (current) use of antithrombotics/antiplatelets
CPT/HCPCS: 71046; 80048; 80048 91; 81003; 84484; 85025; 85027; 85610; 85730; 86850; 86900; 86901; 86920; 87070; 87205; 93005; 93971; 94010; 94640; 94640 76; 94667; 94668; 94760; 94799; 97530 GO; 97530 GP; 99202; 99281; 99285; C1757; J0690; J1170; J1644; J1650; J2405; J2543; J2720; J2765; J3010; J7050; J7120; J7512; P9016; Q0169

== ENCOUNTER 2017-11-20 18:34 | Inpatient (IN) | payer OTHER, MEDICARE ==
[~2017-11-20] VITALS: Ht 162.6 cm; Wt 60.5 kg
[~2017-11-20 18:34] MED LIST changes: +EAR WAX DROPS15 ML RIGHT EAR; +LEVAQUIN500 MG PO; +LOPRESSOR50 MG PO; +PREDNISONE10 MG PO; +TRAMADOL HCL50 MG PO; +TYLENOL EXTRA500 MG PO
[2017-11-20 19:13] LABS: HEMATOCRIT 28.9 % (36.0-46.0); HEMOGLOBIN 9.8 G/DL (11.9-15.5); MCH 30.2 PG (29.0-34.0); MCHC 33.9 G/DL (30.0-36.0); MCV 88.9 FL (83-99); PLATELET COUNT 151 K/uL (156-360); RBC DIS.WIDTH-CV 15.4 % (11.8-14.6); RBC DIS.WIDTH-SD 50.1 % (39-53); RED BLOOD COUNT 3.25 M/uL (3.80-5.20); WHITE BLOOD COUNT 10.3 K/uL (4.1-10.2)
[2017-11-20 19:22] LABS: CHLORIDE 97 mEq/L (99-109); SODIUM 130 mEq/L (136-147)
[2017-11-20 19:24] LABS: GLUCOSE 109 mg/dL (70-99)
[2017-11-20 19:27] LABS: CREATININE 1.1 mg/dL (0.6-1.3); GFR ESTIMATE (CALCULATED) 51 mL/min/
[2017-11-20 19:28] LABS: UREA NITROGEN (BUN) 24 mg/dL (9-23)
[2017-11-20] MEDS ORDERED: NIFEDIPINE ER60 MG PO (19:43)
[2017-11-20 19:51] LABS: TROP-I INTERPRETATION NEGATIVE; TROPONIN-I 0.09 ng/mL (0.0-0.30)
[2017-11-20 20:28] LABS: BASOPHIL (%) 0.3 % (0-1); EOSINOPHIL (%) 0 % (0-5); IMMATURE GRANULOCYTE (%) 0.4 % (0.0-0.7); LYMPHOCYTE (%) 12.2 % (15-42); LYMPHOCYTE COUNT 1.2 K/uL (1.0-2.8); MONOCYTE (%) 5.6 % (3-12); MONOCYTE COUNT 0.6 K/uL (0-0.8); NEUTROPHIL (%) 81.5 % (45-76); NEUTROPHIL COUNT 8.3 K/uL (1.8-6.4)
[2017-11-20 20:30] LABS: ALBUMIN 3.2 g/dL (3.2-4.8)
[2017-11-20 20:33] LABS: TOTAL PROTEIN 7.3 g/dL (6.4-8.3)
[2017-11-20 20:35] LABS: TOTAL BILIRUBIN 0.7 mg/dL (0.0-1.0)
[2017-11-20 20:36] LABS: ALKALINE PHOSPHATASE 78 IU/L (3-129)
[2017-11-20 20:38] LABS: AST (GOT) 33 IU/L (2-34); DIRECT BILIRUBIN 0.4 mg/dL (0.0-0.3)
[2017-11-20 20:39] LABS: ALT (GPT) 17 IU/L (3-49); LIPASE 17 U/L (1.0-51.0)
[2017-11-20 21:37] LABS: APPEARANCE CLEAR ((CLEAR)); BILIRUBIN NEGATIVE; BLOOD SMALL; COLOR YELLOW ((YELLOW)); GLUCOSE (STRIP) NEGATIVE; KETONES 5; LEUKOCYTES NEGATIVE; NITRITE NEGATIVE; PROTEIN (STRIP) 30; SPECIFIC GRAVITY 1.016 (1.000-1.030)
[2017-11-20 21:42] LABS: BACTERIA NONE SEEN /HPF; EPITHELIAL CELLS RARE /HPF; HYALINE CASTS 0-5 /LPF; MUCUS TRACE /LPF; UCUL ADDED? NO; WHITE BLOOD CELLS 0-5 /HPF (0-5)
[2017-11-20] MEDS ORDERED: IMDUR60 MG PO (23:23)
[2017-11-20] MEDS ORDERED: PROAIR HFA8.5 GM IH (23:24)
[2017-11-20] MEDS ORDERED: K-DUR10 MEQ PO (23:24)
[2017-11-20] MEDS ORDERED: BENAZEPRIL-HCT1 EAC5 PO (23:24)
[2017-11-21 04:34] LABS: TROP-I INTERPRETATION NEGATIVE; TROPONIN-I 0.06 ng/mL (0.0-0.30)
[2017-11-21 04:47] VITALS: BP 140/66
[2017-11-21 07:22] VITALS: BP 162/70
[2017-11-21 09:38] LABS: HEMATOCRIT 26.1 % (36.0-46.0); HEMOGLOBIN 8.7 G/DL (11.9-15.5); MCH 29.6 PG (29.0-34.0); MCHC 33.3 G/DL (30.0-36.0); MCV 88.8 FL (83-99); PLATELET COUNT 144 K/uL (156-360); RBC DIS.WIDTH-CV 15.2 % (11.8-14.6); RBC DIS.WIDTH-SD 49.5 % (39-53); RED BLOOD COUNT 2.94 M/uL (3.80-5.20); WHITE BLOOD COUNT 8.8 K/uL (4.1-10.2)
[2017-11-21 10:02] LABS: CHLORIDE 100 MEQ/L (99-109); CREATININE 0.9 MG/DL (0.6-1.3); GFR ESTIMATE (CALCULATED) > 59 mL/min/; GLUCOSE 92 mg/dL (70-99); POTASSIUM 3.6 MEQ/L (3.7-5.4); SODIUM 131 MEQ/L (136-147); UREA NITROGEN (BUN) 18 mg/dL (9-23)
[2017-11-21 10:32] VITALS: BP 135/64
[2017-11-21 16:18] VITALS: BP 158/74
[2017-11-22 00:10] VITALS: BP 93/50
[2017-11-22 06:50] VITALS: BP 107/53
[2017-11-22 08:07] LABS: BASOPHIL (%) 0.5 % (0-1); EOSINOPHIL (%) 0 % (0-5); HEMATOCRIT 32.5 % (36.0-46.0); HEMOGLOBIN 10.8 G/DL (11.9-15.5); IMMATURE GRANULOCYTE (%) 0.6 % (0.0-0.7); LYMPHOCYTE COUNT 0.9 K/uL (1.0-2.8); MCH 29.8 PG (29.0-34.0); MCHC 33.2 G/DL (30.0-36.0); MCV 89.8 FL (83-99); MONOCYTE COUNT 0.3 K/uL (0-0.8); NEUTROPHIL (%) 84.9 % (45-76); NEUTROPHIL COUNT 7.2 K/uL (1.8-6.4); PLATELET COUNT 133 K/uL (156-360); RBC DIS.WIDTH-CV 15.4 % (11.8-14.6); RBC DIS.WIDTH-SD 50.9 % (39-53); RED BLOOD COUNT 3.62 M/uL (3.80-5.20); WHITE BLOOD COUNT 8.5 K/uL (4.1-10.2)
[2017-11-22 08:19] LABS: ALBUMIN 2.7 g/dL (3.2-4.8)
[2017-11-22 08:20] LABS: POTASSIUM 3.6 mEq/L (3.7-5.4); SODIUM 137 mEq/L (136-147)
[2017-11-22 08:21] LABS: CHLORIDE 108 mEq/L (99-109)
[2017-11-22 08:22] LABS: GLUCOSE 83 mg/dL (70-99); TOTAL PROTEIN 6.3 g/dL (6.4-8.3)
[2017-11-22 08:25] LABS: ALKALINE PHOSPHATASE 68 IU/L (3-129); TOTAL BILIRUBIN 0.5 mg/dL (0.0-1.0)
[2017-11-22 08:26] LABS: GFR ESTIMATE (CALCULATED) 57 mL/min/
[2017-11-22 08:27] LABS: AST (GOT) 37 IU/L (2-34); UREA NITROGEN (BUN) 21 mg/dL (9-23)
[2017-11-22 08:28] LABS: ALT (GPT) 16 IU/L (3-49)
[2017-11-22 15:24] VITALS: BP 141/65
[2017-11-23 00:23] VITALS: BP 142/82
[2017-11-23 06:09] LABS: BASOPHIL (%) 0.2 % (0-1); EOSINOPHIL (%) 0 % (0-5); HEMATOCRIT 27.8 % (36.0-46.0); HEMOGLOBIN 9.1 G/DL (11.9-15.5); IMMATURE GRANULOCYTE (%) 0.5 % (0.0-0.7); LYMPHOCYTE (%) 23.7 % (15-42); LYMPHOCYTE COUNT 1.4 K/uL (1.0-2.8); MCH 29.4 PG (29.0-34.0); MCHC 32.7 G/DL (30.0-36.0); MONOCYTE (%) 5.8 % (3-12); MONOCYTE COUNT 0.3 K/uL (0-0.8); NEUTROPHIL (%) 69.8 % (45-76); NEUTROPHIL COUNT 4.1 K/uL (1.8-6.4); PLATELET COUNT 145 K/uL (156-360); RBC DIS.WIDTH-CV 15.6 % (11.8-14.6); RBC DIS.WIDTH-SD 51.6 % (39-53); RED BLOOD COUNT 3.09 M/uL (3.80-5.20); WHITE BLOOD COUNT 5.9 K/uL (4.1-10.2)
[2017-11-23 06:34] LABS: CHLORIDE 108 MEQ/L (99-109); CREATININE 0.9 MG/DL (0.6-1.3); GFR ESTIMATE (CALCULATED) > 59 mL/min/; GLUCOSE 82 mg/dL (70-99); SODIUM 137 MEQ/L (136-147); UREA NITROGEN (BUN) 18 mg/dL (9-23)
[2017-11-23 06:41] LABS: POTASSIUM 4.7 MEQ/L (3.7-5.4)
[2017-11-23 07:20] VITALS: BP 112/56
[2017-11-23 12:16] VITALS: BP 155/69
[2017-11-23 12:52] VITALS: BP 104/54
[2017-11-23 20:57] VITALS: BP 103/59
[2017-11-24 07:28] VITALS: BP 105/55
[2017-11-24 16:24] VITALS: BP 109/53
[2017-11-24 21:31] VITALS: BP 148/65
[2017-11-24 22:54] VITALS: BP 118/65
[2017-11-25 06:55] VITALS: BP 120/56
[2017-11-25 11:48] LABS: BASOPHIL (%) 0.3 % (0-1); EOSINOPHIL (%) 0 % (0-5); HEMATOCRIT 24.9 % (36.0-46.0); HEMOGLOBIN 8.1 G/DL (11.9-15.5); IMMATURE GRANULOCYTE (%) 0.5 % (0.0-0.7); LYMPHOCYTE (%) 18.9 % (15-42); LYMPHOCYTE COUNT 1.4 K/uL (1.0-2.8); MCH 29.6 PG (29.0-34.0); MCHC 32.5 G/DL (30.0-36.0); MCV 90.9 FL (83-99); MONOCYTE (%) 4.5 % (3-12); MONOCYTE COUNT 0.3 K/uL (0-0.8); NEUTROPHIL (%) 75.8 % (45-76); NEUTROPHIL COUNT 5.5 K/uL (1.8-6.4); PLATELET COUNT 173 K/uL (156-360); RBC DIS.WIDTH-CV 15.8 % (11.8-14.6); RBC DIS.WIDTH-SD 51.9 % (39-53); RED BLOOD COUNT 2.74 M/uL (3.80-5.20); WHITE BLOOD COUNT 7.3 K/uL (4.1-10.2)
[2017-11-25 11:58] LABS: CHLORIDE 110 mEq/L (99-109); POTASSIUM 4.7 mEq/L (3.7-5.4); SODIUM 136 mEq/L (136-147)
[2017-11-25 12:03] LABS: GFR ESTIMATE (CALCULATED) 57 mL/min/
[2017-11-25 12:04] LABS: UREA NITROGEN (BUN) 21 mg/dL (9-23)
[2017-11-25 12:16] LABS: GLUCOSE 119 mg/dL (70-99)
[2017-11-25 15:00] VITALS: BP 100/50
== END 2017-11-25 16:40 | DRG 863 ==
LOC: EME 18:34 → EDOF 11-21 02:28 → 5EAST 11-21 02:28
PROVIDERS: Hospitalist; Nurse Practitioner Adult Health; Student in an Organized Health Care Education/Training Program
DX: T81.4XXA Infection following a procedure, initial encounter (principal); R78.81 Bacteremia; B96.5 Pseudomonas (aeruginosa) (mallei) (pseudomallei) as the cause of diseases classified elsewhere; E86.0 Dehydration; I12.9 Hypertensive chronic kidney disease with stage 1 through stage 4 chronic kidney disease, or unspecified chronic kidney disease; N18.9 Chronic kidney disease, unspecified; I31.3 Pericardial effusion (noninflammatory); I35.0 Nonrheumatic aortic (valve) stenosis; I69.354 Hemiplegia and hemiparesis following cerebral infarction affecting left non-dominant side; J44.9 Chronic obstructive pulmonary disease, unspecified; S09.90XA Unspecified injury of head, initial encounter; W18.30XA Fall on same level, unspecified, initial encounter; I73.9 Peripheral vascular disease, unspecified; M81.0 Age-related osteoporosis without current pathological fracture; E03.9 Hypothyroidism, unspecified; E78.5 Hyperlipidemia, unspecified; G40.909 Epilepsy, unspecified, not intractable, without status epilepticus; H40.9 Unspecified glaucoma; R32 Unspecified urinary incontinence; D64.9 Anemia, unspecified; R11.0 Nausea; R26.9 Unspecified abnormalities of gait and mobility; I25.2 Old myocardial infarction; Z99.3 Dependence on wheelchair; Z87.891 Personal history of nicotine dependence
CPT/HCPCS: 70450; 71046; 71250; 74176; 74177; 76937; 80048; 80053; 80076; 81003; 83605; 83690; 84484; 85025; 85027; 87040; 87070; 87075; 87077; 87086; 87106; 87186; 87205; 87801; 93005; 94799; 99281; 99285; C1751; C1894; J0360; J0692; J0696; J1644; J1885; J1956; J2270; J3370; J7030

== ENCOUNTER 2017-11-26 09:32 | Inpatient (IN) | payer OTHER, MEDICARE ==
[~2017-11-26] VITALS: Ht 162.6 cm; Wt 59.0 kg
[~2017-11-26 09:32] MED LIST changes: +BENAZEPRIL-HCT1 EAC5 PO
[2017-11-26 10:28] LABS: BASOPHIL (%) 0.2 % (0-1); EOSINOPHIL (%) 0 % (0-5); HEMATOCRIT 24.4 % (36.0-46.0); HEMOGLOBIN 8.2 G/DL (11.9-15.5); IMMATURE GRANULOCYTE (%) 0.9 % (0.0-0.7); LYMPHOCYTE (%) 6.9 % (15-42); LYMPHOCYTE COUNT 0.9 K/uL (1.0-2.8); MCH 30.5 PG (29.0-34.0); MCHC 33.6 G/DL (30.0-36.0); MCV 90.7 FL (83-99); MONOCYTE (%) 3.6 % (3-12); MONOCYTE COUNT 0.5 K/uL (0-0.8); NEUTROPHIL (%) 88.4 % (45-76); NEUTROPHIL COUNT 11.3 K/uL (1.8-6.4); PLATELET COUNT 197 K/uL (156-360); RBC DIS.WIDTH-CV 15.9 % (11.8-14.6); RBC DIS.WIDTH-SD 51.8 % (39-53); RED BLOOD COUNT 2.69 M/uL (3.80-5.20); WHITE BLOOD COUNT 12.8 K/uL (4.1-10.2)
[2017-11-26 10:31] LABS: INTER. NORMALIZED RATIO 1.1
[2017-11-26 10:32] LABS: ALBUMIN 2.4 g/dL (3.2-4.8); CHLORIDE 108 mEq/L (99-109); POTASSIUM 4.5 mEq/L (3.7-5.4); SODIUM 134 mEq/L (136-147)
[2017-11-26 10:33] LABS: PTT 21.2 SEC (25-37)
[2017-11-26 10:35] LABS: GLUCOSE 100 mg/dL (70-99); TOTAL PROTEIN 5.8 g/dL (6.4-8.3)
[2017-11-26 10:37] LABS: TOTAL BILIRUBIN 0.4 mg/dL (0.0-1.0)
[2017-11-26 10:38] LABS: ALKALINE PHOSPHATASE 74 IU/L (3-129); CREATININE 0.9 mg/dL (0.6-1.3); GFR ESTIMATE (CALCULATED) > 59 mL/min/
[2017-11-26 10:40] LABS: AST (GOT) 37 IU/L (2-34); DIRECT BILIRUBIN 0.2 mg/dL (0.0-0.3); UREA NITROGEN (BUN) 18 mg/dL (9-23)
[2017-11-26 10:41] LABS: ALT (GPT) 22 IU/L (3-49)
[2017-11-26 10:42] LABS: LIPASE 10 U/L (1.0-51.0); TROP-I INTERPRETATION NEGATIVE; TROPONIN-I 0.01 ng/mL (0.0-0.30)
[2017-11-26 13:37] LABS: APPEARANCE CLEAR ((CLEAR)); BILIRUBIN NEGATIVE; BLOOD SMALL; COLOR STRAW ((YELLOW)); GLUCOSE (STRIP) NEGATIVE; KETONES NEGATIVE; LEUKOCYTES NEGATIVE; NITRITE NEGATIVE; PROTEIN (STRIP) NEGATIVE; SPECIFIC GRAVITY 1.009 (1.000-1.030); UROBILINOGEN 0.2 MG/DL (0.2-1.0)
[2017-11-26 13:40] LABS: BACTERIA NONE SEEN /HPF; EPITHELIAL CELLS NONE SEEN /HPF; MUCUS TRACE /LPF; RED BLOOD CELLS 0-5 /HPF (0-5); UCUL ADDED? NO; WHITE BLOOD CELLS 0-5 /HPF (0-5)
[2017-11-26 14:46] VITALS: BP 126/74
[2017-11-26 19:00] VITALS: BP 132/60
[2017-11-26 23:00] VITALS: BP 164/73
[2017-11-27] VITALS (7 sets, daily range): BP systolic 109–184; BP diastolic 44–77
[2017-11-27 09:00] LABS: HEMATOCRIT 28.3 % (36.0-46.0); HEMOGLOBIN 9.2 G/DL (11.9-15.5); MCH 29.8 PG (29.0-34.0); MCHC 32.5 G/DL (30.0-36.0); MCV 91.6 FL (83-99); PLATELET COUNT 192 K/uL (156-360); RBC DIS.WIDTH-CV 16.3 % (11.8-14.6); RBC DIS.WIDTH-SD 52.5 % (39-53); RED BLOOD COUNT 3.09 M/uL (3.80-5.20); WHITE BLOOD COUNT 5.8 K/uL (4.1-10.2)
[2017-11-27 09:15] LABS: CHLORIDE 110 mEq/L (99-109); POTASSIUM 4.6 mEq/L (3.7-5.4); SODIUM 136 mEq/L (136-147)
[2017-11-27 09:16] LABS: GLUCOSE 95 mg/dL (70-99)
[2017-11-27 09:20] LABS: CREATININE 0.8 mg/dL (0.6-1.3); GFR ESTIMATE (CALCULATED) > 59 mL/min/
[2017-11-27 09:21] LABS: UREA NITROGEN (BUN) 20 mg/dL (9-23)
[2017-11-27 13:38] LABS: HDL CHOLESTEROL 15 MG/DL (Desirable>=50); LDL CHOLESTEROL 61 mg/dL (Desirable<100); NON-HDL CHOLESTEROL 90 mg/dL (Desirable<160); TOTAL CHOLESTEROL 105 mg/dL (Desirable<200); TRIGLYCERIDES 143 MG/DL (Normal: <150)
[2017-11-27 14:24] LABS: HEMOGLOBIN A1c (GLYCOHEMOGLOB) 5.5 % (Below 5.7)
[2017-11-28] VITALS (7 sets, daily range): BP systolic 91–144; BP diastolic 46–64
[2017-11-29 03:47] VITALS: BP 153/68
[2017-11-29 06:53] VITALS: BP 141/61
[2017-11-29 11:06] VITALS: BP 127/73
[2017-11-29 11:11] VITALS: BP 126/53
[2017-11-29] MEDS ORDERED: IBUPROFEN400 MG PO (11:51)
[2017-11-29] MEDS ORDERED: COLCHICINE0.6 M1 PO (11:52)
[2017-11-29] MEDS ORDERED: METOPROLOL TART25 MG PO (11:52)
[2017-11-29] MEDS ORDERED: ZOSYN 3.3753.375 GM IV (11:53)
[2017-11-29 15:15] VITALS: BP 143/54
== END 2017-11-29 15:27 | DRG 314 ==
LOC: EME → EDBD 09:32 → EDOF 12:58 → 5SOUTH 12:58 → 4EAST 12:58 → ENRESERV 13:02 → 4EAST 14:18 → ENRESERV 11-28 10:27 → 5SOUTH 11-28 12:54
PROVIDERS: Emergency Medicine; Hospitalist
DX: T82.7XXA Infection and inflammatory reaction due to other cardiac and vascular devices, implants and grafts, initial encounter (principal); A41.52 Sepsis due to Pseudomonas; R65.21 Severe sepsis with septic shock; G93.41 Metabolic encephalopathy; E78.5 Hyperlipidemia, unspecified; G40.909 Epilepsy, unspecified, not intractable, without status epilepticus; I10 Essential (primary) hypertension; M81.0 Age-related osteoporosis without current pathological fracture; I73.9 Peripheral vascular disease, unspecified; I31.3 Pericardial effusion (noninflammatory); J81.1 Chronic pulmonary edema; I63.9 Cerebral infarction, unspecified; Y83.2 Surgical operation with anastomosis, bypass or graft as the cause of abnormal reaction of the patient, or of later complication, without mention of misadventure at the time of the procedure; I69.354 Hemiplegia and hemiparesis following cerebral infarction affecting left non-dominant side; I25.2 Old myocardial infarction; Z99.3 Dependence on wheelchair; Z87.891 Personal history of nicotine dependence; Y92.89 Other specified places as the place of occurrence of the external cause
CPT/HCPCS: 70450; 70553; 71045; 71250; 80048; 80048 91; 80061; 80076; 81003; 83036; 83605; 83690; 83880; 84145 90; 84484; 85025 91; 85027; 85610; 85730; 86140; 87040; 87070; 87075; 87077; 87186; 87205; 93005; 93306; 94640; 99281; 99285; J0360; J0692; J1650; J1885; J2270; J2543; J3010; J3370; J7050; S0028